=== PATIENT | female | born 1980 | race Caucasian/White ===

== ENCOUNTER 2017-11-27 19:11 | Emergency (ER) | payer MEDICAID ==
[~2017-11-27] VITALS: Ht 152.4 cm; Wt 89.7 kg
[2017-11-27] MEDS ORDERED: SODIUM CHLORIDE 0.9% 1,000 ML IV ONE (22:03)
[2017-11-27 22:30] LABS: BASOPHILS % 0.4 % (0.0-2.0); EOSINOPHILS % 0.4 % (0.0-5.0); HEMATOCRIT. 38.8 % (36.0-48.0); HEMOGLOBIN. 13.8 g/dL (12.0-16.0); MEAN CORPUSCULAR HEMOGLOBIN 31.2 pg (28.0-32.0); MEAN CORPUSCULAR VOLUME 87.7 fL (81.0-99.0); MEAN PLATELET VOLUME 7.6 fl (7.4-10.4); MONOCYTES % 9.4 % (2.0-8.0); NEUTROPHILS % 74.8 % (40.0-76.0); PLATELET 359 x1000/uL (130-400); RED BLOOD CELL COUNT 4.43 mill/uL (4.2-5.4); RED CELL DISTRIBUTION WIDTH 13.5 % (11.6-14.6)
[2017-11-27] MEDS ORDERED: ACETAMINOPHEN 325MG TABLET PO ONE (22:30)
[2017-11-27 22:38] LABS: HCG SCREEN NEGATIVE
[2017-11-27 23:03] LABS: CARBON DIOXIDE 27 mEq/L (21-32); CHLORIDE 100 mEq/L (98-107)
[2017-11-27 23:51] LABS: CLARITY URINE CLEAR (CLEAR); COLOR URINE YELLOW (YELLOW); KETONES URINE 3+ (NEGATIVE); LEUKOCYTE ESTERASE URINE 1+ (NEGATIVE); NITRITE URINE NEGATIVE (NEGATIVE); OCCULT BLOOD URINE TRACE (NEGATIVE); PH URINE 5.5 (4.5-8.0); PROTEIN URINE NEGATIVE (NEGATIVE); SPECIFIC GRAVITY URINE 1.021 (1.005-1.030)
[2017-11-28] MEDS ORDERED: OSELTAMIVIR 75MG CAPSULE PO NR (00:30)
[2017-11-28] MEDS ORDERED: KETOROLAC 30MG/ML VIAL IV NR (00:30)
[2017-11-28] MEDS ORDERED: ONDANSETRON 4MG ODT PO NR (00:30)
[2017-11-28 00:46] VITALS: BP 107/67
== END 2017-11-28 01:56 | disposition home or self-care (01) ==
LOC: ER 19:12
DX: J11.1 Influenza due to unidentified influenza virus with other respiratory manifestations (principal); E86.0 Dehydration; Z20.828 Contact with and (suspected) exposure to other viral communicable diseases
CPT/HCPCS: 36415; 71045; 80053; 81001; 81025; 84703; 85025; 87804; 96361; 96374; 99285; J1885; J7030; Q0162; Z7610